=== PATIENT | male | born 1955 | race Caucasian/White ===

== ENCOUNTER 2019-11-05 12:23 | Inpatient (IN) | payer MEDICARE ==
[~2019-11-05] VITALS: Ht 182.9 cm; Wt 102.5 kg
--- NOTE | 2019-11-05 12:31 | NUR ---
BIB C/O EPIGASTRIC PAIN SINCE YESTERDAY MORNING, NAUSEA AND VOMITING, HX OF HAITAL HERNIA, TO ER BED 10, HOOKED TO MONITOR, CHANGED TO HOSP GOWN, PROVIDED W WARM BLANKET, PATIENT AOx4 , BREATHING EVEN AND UNLABORED. AWAITING MD SHERWOOD.
--- NOTE | 2019-11-05 13:12 | NUR ---
DR MARRUFO AT BEDSIDE
[2019-11-05 13:26] LABS: BASOPHILS % (AUTO) 0.6 % (0.0-2.0); EOSINOPHILS % (AUTO) 1.5 % (0.0-6.0); HEMATOCRIT 50 % (39-51); HEMOGLOBIN 16.6 g/dL (13.5-17.5); LYMPHOCYTES # (AUTO) 0.7 /CMM (0.8-4.8); LYMPHOCYTES % (AUTO) 13.6 % (20.0-44.0); MEAN CORPUSCULAR HGB CONC 34 g/dl (31.0-36.0); MEAN CORPUSCULAR VOLUME 89 fL (80-96); MONOCYTES # (AUTO) 0.3 /CMM (0.1-1.30); MONOCYTES % (AUTO) 5.4 % (2.0-12.0); NEUTROPHILS # (AUTO) 4.1 /CMM (1.8-8.9); NEUTROPHILS % (AUTO) 78.9 % (43.0-81.0); PLATELET COUNT (AUTO) 205 /CMM (150-450); RED BLOOD CELL COUNT(AUTO) 5.59 MIL/uL (4.5-6.0); WHITE BLOOD COUNT (AUTO) 5.2 K/uL (4.3-11.0)
[2019-11-05] MEDS ORDERED: ONDANSETRON HCL/PF 4 MG/2 ML VIAL IVP ONE (13:30)
[2019-11-05] MEDS ORDERED: KETOROLAC TROMETHAMINE INJ 30 MG/ML VIAL IV ONE (13:30)
[2019-11-05] MEDS ORDERED: IV NS 0.9% 1,000 ML BAG IV ONE (13:30)
[2019-11-05] MEDS ORDERED: LIDOCAINE VISCOUS 2% UD 15 ML UDC MM ONE (13:30)
[2019-11-05] MEDS ORDERED: FAMOTIDINE/PF INJ 20 MG/2 ML VIAL IV ONE ×2 (13:30→13:32)
[2019-11-05] MEDS ORDERED: MAG HYDROX/AL HYDROX/SIMETH 30 ML UDC PO ONE (13:30)
[2019-11-05 13:32] LABS: CALCIUM, SERUM 9.7 mg/dL (8.5-10.1); CARBON DIOXIDE 31 mmol/L (21-32); CHLORIDE 102 mmol/L (98-107); CREATININE 1.1 mg/dL (0.6-1.3); GLUCOSE 106 mg/dL (74-106); POTASSIUM 3.8 mmol/L (3.5-5.1); SODIUM SERUM 140 mmol/L (136-145); UREA NITROGEN, BLOOD 12 mg/dL (7-18)
[2019-11-05] MEDS ORDERED: MAG HYDROX/AL HYDROX/SIMETH 30 ML UDC ONE (13:32)
[2019-11-05] MEDS ORDERED: ONDANSETRON HCL/PF 4 MG/2 ML VIAL ONE (13:32)
[2019-11-05] MEDS ORDERED: KETOROLAC TROMETHAMINE 15 MG/ML VIAL ONE (13:32)
[2019-11-05] MEDS ORDERED: LIDOCAINE VISCOUS 2% UD 15 ML UDC ONE (13:32)
[2019-11-05 13:48] LABS: ALANINE AMINOTRANSFERASE 1324 U/L (12-78); ALKALINE PHOSPHATASE 264 U/L (46-116); ASPARTATE AMINOTRANSFERASE 1019 U/L (15-37); BILIRUBIN,DIRECT 3.1 mg/dL (0.0-0.2); BILIRUBIN,TOTAL 4.5 mg/dL (0.2-1.0); LIPASE 103 U/L (73-393); TOTAL PROTEIN, SERUM 7.9 g/dL (6.4-8.2)
--- NOTE | 2019-11-05 14:30 | NUR ---
MS/RN PATIENT VOMITED X2, ZOFRAN 4MG WAS GIVEN ORDER.
--- NOTE | 2019-11-05 14:47 | NUR ---
called [facility], paged jeremy neri
[2019-11-05] MEDS ORDERED: VITA400C71 PO (14:53)
[2019-11-05] MEDS ORDERED: LATA7.5D EACHEYE (14:53)
[2019-11-05] MEDS ORDERED: GINK120T4 PO (14:53)
[2019-11-05] MEDS ORDERED: MULT-24 PO (14:53)
[2019-11-05] MEDS ORDERED: SUCR1TAB PO (14:53)
[2019-11-05] MEDS ORDERED: ESOM40CA PO (14:53)
[2019-11-05] MEDS ORDERED: OMEG1CAP PO (14:53)
[2019-11-05] MEDS ORDERED: FINA5TAB11 PO (14:53)
[2019-11-05] MEDS ORDERED: CHOL200026 PO (14:53)
--- NOTE | 2019-11-05 15:12 | NUR ---
[id number] [facility]
--- NOTE | 2019-11-05 15:46 | NUR ---
report given to chris mccloud for for sean. awaiting transfer to floor.
--- NOTE | 2019-11-05 15:58 | NUR ---
URINE SAMPLE SENT TO LAB
--- NOTE | 2019-11-05 16:00 | NUR ---
ADMISSION NOTE PT WAS BROUGHT AT THIS TIME VIA ALECIA, A/O X4 BREATHING EVEN AND UNLABORED, CURRENT COMPLAINTS OF ABDOMINAL PAIN 5 OUT OF 10 THAT RADIATES TO THE BACK, IV IS PATENT AND INTACT, SKIN NOTED TO BE INTACT AND PT NOTED TO BE AMBULATORY, PT DOES COMPLAIN OF NAUSEA WITH NO VOMITING AT THIS TIME, PRESENT AT BEDSIDE, SAFETY PRECAUTIONS IN PLACE, CALL LIGHT IN REACH, WILL MONITOR ACCORDINGLY
[2019-11-05] MEDS ORDERED: MORPHINE SULFATE INJ 2 MG/ML DISP.SYRIN IV PRN (16:30)
[2019-11-05] MEDS ORDERED: Z GUARD REMEDY 2 OZ OINT TP PRN (16:30)
[2019-11-05] MEDS: ONDANSETRON HCL/PF 4 MG/2 ML VIAL IVP PRN ×2 (16:35→23:30)
--- NOTE | 2019-11-05 17:00 | NUR ---
RN NOTE CONSENT SIGNED FOR ERCP THAT IS PLANNED TOMORROW
[2019-11-05] MEDS: IV D5/0.45 NACL 1,000 ML IV PRN (17:25)
--- NOTE | 2019-11-05 18:37 | NUR ---
CLOSING NOTE PT IN BED WITH SIDE RAILS UP X2, A/O X4 BREATHING EVEN AND UNLABORED WITH NO DISTRESS AT THIS TIME, CURRENT COMPLAINTS OF HEADACHE, IV IS PATENT AND INTACT, CURRENTLY HAS NAUSEA WITH SOME VOMITING, PRESENT AT BEDSIDE, SAFETY PRECAUTIONS IN PLACE, CALL LIGHT IN REACH, ALL NEEDS ATTENDED TO, WILL ENDORSE TO NIGHT RN FOR HELEN.
[2019-11-05] MEDS ORDERED: KETOROLAC TROMETHAMINE INJ 30 MG/ML VIAL IV PRN (19:00)
--- NOTE | 2019-11-05 19:49 | NUR ---
MS RN OPENING NOTES Patient received resting in bed with at bedside, a/o x4. Stable on room air, breathing even and unlabored, no complaints of SOB. No current complaints of pain or discomfort and no signs of acute distress noted. IV located on L AC #20 running D5 1/2 NS @ 75 ml/hr. Safety precautions are in place with bed in lowest position, breaks on, and call light within reach. Will continue to monitor.
[2019-11-05 20:00] VITALS: BP 133/65
[2019-11-05 21:11] VITALS: BP 133/65
[2019-11-06] MEDS: IV D5/0.45 NACL 1,000 ML IV PRN (06:21)
[2019-11-06 07:25] LABS: BASOPHILS % (AUTO) 0.8 % (0.0-2.0); EOSINOPHILS % (AUTO) 3.7 % (0.0-6.0); HEMATOCRIT 43 % (39-51); HEMOGLOBIN 14.4 g/dL (13.5-17.5); LYMPHOCYTES # (AUTO) 0.7 /CMM (0.8-4.8); LYMPHOCYTES % (AUTO) 19.4 % (20.0-44.0); MEAN CORPUSCULAR HGB CONC 33 g/dl (31.0-36.0); MEAN CORPUSCULAR VOLUME 88 fL (80-96); MONOCYTES # (AUTO) 0.3 /CMM (0.1-1.30); MONOCYTES % (AUTO) 8.1 % (2.0-12.0); NEUTROPHILS # (AUTO) 2.6 /CMM (1.8-8.9); PLATELET COUNT (AUTO) 177 /CMM (150-450); RED BLOOD CELL COUNT(AUTO) 4.91 MIL/uL (4.5-6.0); WHITE BLOOD COUNT (AUTO) 3.8 K/uL (4.3-11.0)
[2019-11-06] MEDS ORDERED: IOHEXOL 240MG/ML 50 ML IV ONE ×2 (07:46→08:03)
[2019-11-06 07:54] LABS: ALBUMIN 3.2 g/dL (3.4-5.0); BILIRUBIN,TOTAL 1.2 mg/dL (0.2-1.0); CALCIUM, SERUM 8.6 mg/dL (8.5-10.1); CREATININE 1.1 mg/dL (0.6-1.3); MAGNESIUM 2.2 mg/dL (1.8-2.4); POTASSIUM 3.9 mmol/L (3.5-5.1); TOTAL PROTEIN, SERUM 6.2 g/dL (6.4-8.2)
[2019-11-06 07:55] LABS: THYROID STIMULATING HORMONE 2.36 uIU/mL (0.358-3.74)
[2019-11-06 08:00] VITALS: BP 136/81
--- NOTE | 2019-11-06 08:00 | NUR ---
RN NOTES RECEIVED PATIENT IN THE BED A/O X4, NO ACUTE RESPIRATORY DISTRESS, V/S STABLE. PATIENT WAS COMPLAINING OF HEADACHE. INFUSING D5 1/2 NS AT 75 ML/HR ON LEFT AC AREA INTACT, PATIENT NPO SCHEDULED FOR PROCEDURE . NEXT TO THE BED. CALL LIGHT WITHIN TO REACH. CONTINUED MONITORING.
[2019-11-06] MEDS ORDERED: INDOMETHACIN 50 MG SUPP.RECT ONE (08:04)
--- NOTE | 2019-11-06 08:11 | NUR ---
RN NOTES PATIENT 3D MODELER SCHEDULED OR PROCEDURE AT THIS TIME.
[2019-11-06] MEDS ORDERED: MIDAZOLAM HCL 2 MG/2ML VIAL ONE (08:13)
[2019-11-06] MEDS ORDERED: FLUMAZENIL 0.5 MG VIAL ONE (08:14)
--- NOTE | 2019-11-06 10:30 | NUR ---
RN NOTES PATIENT BACK FROM PROCEDURE AT THIS TIME STABLE, NO ACUTE RESPIRATORY DISTRESS ON O2 2L, V/S TAKEN BP -120/80, P-55, R-18, T-98.1, O2-95 NC, PATIENT REFUSED PAIN JUST SORENESS ON THROAT. DVT PUMP ON INFUSING D51/2 NS AT 75 ML/HR ON LEFT AC AREA INTACT, NEXT TO THE BED. PATIENT CLEAR LIQUID DIET, AND RESUME MEDS PER MD'S ORDER, CONTINUED MONITORING.
--- NOTE | 2019-11-06 14:15 | NUR ---
RN NOTES PATIENT STABLE CHANGED DIET FOR SOFT TOLERATED.PATIENT TOLERATED WELL, REFUSED PAIN, NO SIGNS AND SYMPTOMS OF NAUSEA AND VOMITING, NO PAIN. GET DISCHARGE ORDER PER HOSPITALIST LIZZIE WISE PATIENT WILL DISCHARGE HOME AND WILL FOLLOW PRIMARY MD.
[2019-11-06 16:00] VITALS: BP 120/77
--- NOTE | 2019-11-06 19:00 | NUR ---
JOINT SEALER NOTES PATIENT DISCHARGE AT THIS TIME GOING HOME. PATIENT STABLE REFUSED PAIN, V/S WNL. MED RECONCILIATION AND DISCHARGE ORDER REVIEWED AND EXPLAINED TO PATIENT AND . PATIENT VERBALIZED UNDERSTANDING. BELONGING WITH THE PATIENT. PAPERWORK SIGNED, GIVEN TO THE PATENT , AND WILL FOLLOW PRIMARY MD. ESCORTED PATIENT TO THE LOBBY FOR SAFETY. PATIENT MENTAL HEALTH THERAPIST BY DAUGHTER NAME ADDIS PHONE #[phone].
== END 2019-11-06 19:00 | disposition home or self-care (01) | DRG 445 ==
LOC: ER 12:23 → MED 15:35
PROVIDERS: ADMIT Nurse Practitioner Acute Care; ATTEND Nurse Practitioner Acute Care
PROC: 0FC98ZZ Extirpation of Matter from Common Bile Duct, Via Natural or Artificial Opening Endoscopic (ICD-10-PCS; principal; 2019-11-06)
DX: K80.71 Calculus of gallbladder and bile duct without cholecystitis with obstruction (principal); F19.20 Other psychoactive substance dependence, uncomplicated; K21.9 Gastro-esophageal reflux disease without esophagitis; H40.9 Unspecified glaucoma; N40.0 Benign prostatic hyperplasia without lower urinary tract symptoms; Z88.5 Allergy status to narcotic agent; K59.00 Constipation, unspecified; K44.9 Diaphragmatic hernia without obstruction or gangrene; E86.0 Dehydration; K57.90 Diverticulosis of intestine, part unspecified, without perforation or abscess without bleeding; Z79.899 Other long term (current) drug therapy
CPT/HCPCS: 36415; 71045-TC; 80048-TC; 80053-TC; 80061-TC; 80076-TC; 83540-TC; 83690-TC; 83735-TC; 84100-TC; 84443-TC; 84484-TC; 85025-TC; 85730-TC; 87081-TC; G0378; J1100; J1885; J2250; J2405; J2704; J3490; J7030; Q9966